=== PATIENT | male | born 1975 | race Caucasian/White ===

== ENCOUNTER → 2017-01-27 | Outpatient (CLI) | payer OTHER ==
[~2017-01-27] MED LIST: ACET-1256 PO; DICY10CA12 PO; PRLSR20 PO; ZNTT/150 PO
--- NOTE | 2017-01-27 16:00 | DIAGNOSTIC IMAGING REPORT ---
MRI OF THE LUMBAR SPINE WITHOUT CONTRAST CLINICAL HISTORY: Acute lumbar strain. Right radiculopathy. COMPARISON STUDY: No previous studies for comparison. TECHNIQUE: Utilizing a 1.5 Mikayla magnet and dedicated coil, multiplanar, multiecho imaging of the lumbar spine was performed without IV contrast. FINDINGS: For purposes of numbering on this exam, the L5-S1 disc space is assigned to axial image 23 of 25. Alignment of the lumbar spine is anatomic. Vertebral body heights are maintained. The conus terminates at the upper L1 level. Paravertebral soft tissues are unremarkable. There is no intracanalicular mass or fluid collection. There is prominent epidural fat within the lower lumbar and sacral canal. L1-2: Central canal and neural foramen are patent. L2-3: The central canal and neural foramen are patent. L3-4: The central canal and neural foramen are patent. L4-5: There is desiccation of the disc. There is a tiny central disc protrusion. The central canal and neural foramen are patent. There is mild facet arthrosis. Note is made of a small synovial cyst posterior to the right facet joint. L5-S1: There is desiccation of the disc. Title central disc protrusion is present. There is mild facet arthrosis. The central canal and neural foramen are patent. IMPRESSION: 1. No acute post traumatic findings within lumbar spine. 2. Tiny central disc protrusions at L4-L5 and L5-S1 without significant central canal or neural foraminal stenosis. 3. Mild multilevel lower lumbar spine facet arthrosis. Electronically signed by: Gabriele Crain M.D. 01/27/2017 3:59 PM Dictated Date/Time: 01/27/2017 3:54 PM
== END | disposition home or self-care (01) ==
PROVIDERS: ATTEND Nurse Practitioner Family
DX: S39.012A Strain of muscle, fascia and tendon of lower back, initial encounter (principal); X58.XXXA Exposure to other specified factors, initial encounter; M54.10 Radiculopathy, site unspecified